=== PATIENT | male | born 1985 | race African-American/Black ===

== ENCOUNTER 2019-01-31 17:02 | Emergency (ER) | payer OTHER ==
[~2019-01-31] VITALS: Ht 154.9 cm; Wt 61.2 kg
[~2019-01-31 17:02] MED LIST: IBUPROFEN 600600 M1 PO; NOHOMEMEDICATIONS; NORCO 5-325 TA1 EACH PO; PROMETHAZINE-C120 ML PO; ZPAK PO
[2019-01-31] MEDS ORDERED: TESSALON PERLE100 MG PO (18:02)
[2019-01-31] MEDS ORDERED: DOXYCYCLINE 10100 MG PO (18:02)
[2019-01-31 18:35] VITALS: BP 110/74
== END 2019-01-31 18:35 | disposition home or self-care (01) ==
LOC: ER 17:02
DX: J18.9 Pneumonia, unspecified organism (principal); F17.210 Nicotine dependence, cigarettes, uncomplicated